=== PATIENT | male | born 1995 | race Two or more races ===

== ENCOUNTER 2024-01-17 04:12 | Emergency (ER) | payer OTHER, MEDICAID ==
[~2024-01-17] VITALS: Ht 170.2 cm; Wt 10.0 kg
[2024-01-17 04:15] VITALS: BP 116/70; PULSE 73; RESP 18; TEMP 98.5; O2SAT 96
[2024-01-17] MEDS: CYCLOBENZAPRINE HCL 10 MG TAB PO ONE (05:16)
[2024-01-17] MEDS: KETOROLAC TROMETH 60MG/2ML VIAL IM ONE (05:16)
[2024-01-17] MEDS: DexAMETHasone SOD PHOS 10MG/1ML VIAL INJ IM ONE (05:17)
[2024-01-17] MEDS ORDERED: METH-1182 PO (06:00)
[2024-01-17] MEDS ORDERED: MELO15TA29 PO (06:00)
== END 2024-01-17 06:12 | disposition home or self-care (01) ==
LOC: ER 04:12
DX: S33.5XXA Sprain of ligaments of lumbar spine, initial encounter (principal); M54.16 Radiculopathy, lumbar region; X50.1XXA Overexertion from prolonged static or awkward postures, initial encounter; Y93.89 Activity, other specified; Y92.89 Other specified places as the place of occurrence of the external cause; Y99.8 Other external cause status
CPT/HCPCS: 72100; 96372; 99284; J1100; J1885